=== PATIENT | male | born 1990 | race Caucasian/White ===

== ENCOUNTER 2023-01-26 16:58 | Emergency (ER) | payer OTHER, MEDICAID, SELFPAY ==
[2023-01-26 17:04] VITALS: BP 136/88; PULSE 89; RESP 18; TEMP 37.1; O2SAT 97; BMI 29.1
--- NOTE | 2023-01-26 17:14 | PC.NURSE ---
IV PLACED PER David RICHARDSON RN
--- NOTE | 2023-01-26 17:22 | ED_ITS ---
Documented by User: GEORGE Sprague 01/26/23 18:17 HPI - General Adult General Chief complaint: Skin/Abscess/Foreign Body Stated complaint: LUMPS Time Seen by Provider: 01/26/23 17:10 Source: patient Mode of arrival: walk-in Limitations: other Limitations comment: PT HAS CEREBRAL PALSY History of Present Illness HPI narrative: patient is a 32-year-old male with cerebral palsy who presents to the emergency department for a one-week history of red swollen tender areas to the bilateral forearms. He has a history of similar in the past. He has had no fevers or vomiting. No medications taken prior to arrival. He states he has had drainage from the areas. There is no active drainage at time of presentation to the Emergency Room. Related Data Previous Rx's Medication Instructions Recorded clindamycin HCl 150 mg capsule 300 mg PO Q6H 10 days #80 caps 01/26/23 naproxen sodium 550 mg tablet 550 mg PO BID PRN pain #10 tabs 01/26/23 ondansetron 4 mg disintegrating 4 mg PO Q6H PRN nausea and 01/26/23 tablet vomiting #12 tabs Allergies Allergy/AdvReac Type Severity Reaction Status Date / Time amoxicillin Allergy Severe Rash Verified 01/26/23 17:04 Review of Systems ROS Constitutional Denies: fever or chills Ears, nose, mouth, and throat Denies: throat pain Respiratory Denies: shortness of breath or cough Gastrointestinal Denies: nausea or vomiting Musculoskeletal Denies: back pain Integumentary/Breast Reports: rash, redness, skin tenderness and skin swelling Neurological Denies: headache Hematologic/Lymphatic Denies: easy bruising Allergic/Immunologic Denies: hives [facility] Medical History (Updated 01/26/23 @ 18:15 by GEORGE Sprague) Social History Smoking status: Never smoker Exam Narrative Exam Narrative: Gen.: Awake, alert, in no distress Head: Normocephalic, atraumatic ENT: Moist mucous membranes Respiratory: No respiratory distress Extremities: spastic movement of the upper extremities with multiple erythematous indurated area has of the right ulnar forearm, multiple scabs n oted, no fluctuance, red streaking or circumferential erythema. Left forearm with healing abscess near the left elbow, no redness or drainage. Swollen, indurated abscess to the left mid forearm with scab, no active drainage Psych: Normal mood and affect Neuro: No focal neuro deficit, spastic movement and dysarthria from cerebral palsy Skin: Warm, dry Constitutional Vital Signs, click to edit/add: Last Vital Signs Temp 98.6 F 01/26/23 18:30 Pulse 92 H 01/26/23 18:30 Resp 16 01/26/23 18:30 BP 124/82 H 01/26/23 18:30 Pulse Ox 96 01/26/23 18:30 O2 Del Method Room Air 01/26/23 18:30 Course Vital Signs Vital signs: Vital Signs Temperature 98.7 F 01/26/23 17:04 Pulse Rate 89 01/26/23 17:04 Respiratory Rate 18 01/26/23 17:04 Blood Pressure 136/88 H 01/26/23 17:04 Pulse Oximetry 97 01/26/23 17:04 Oxygen Delivery Method Room Air 01/26/23 17:04 Temperature 98.6 F 01/26/23 18:30 Pulse Rate 92 H 01/26/23 18:30 Respiratory Rate 16 01/26/23 18:30 Blood Pressure 124/82 H 01/26/23 18:30 Pulse Oximetry 96 01/26/23 18:30 Oxygen Delivery Method Room Air 01/26/23 18:30 Medical Decision Making MDM Narrative Medical decision making narrative: patient treated with IV clindamycin, lab studies are within normal limits, no evidence of sepsis and the patient will be discharged home on clindamycin, NSAIDs and Zofran as needed. No open wounds to culture with drainage at this time. No significant fluctuant areas requiring incision and drainage. Warm compresses encouraged. Follow-up with PCP and return to the emergency department if symptoms change or worsen Medical Records Medical records reviewed: Yes I reviewed the patient's medical records Lab Data Lab results reviewed: Yes I reviewed the patient's lab results Labs: Lab Results 01/26/23 01/26/23 Range/Units 17:14 17:30 WBC 9.0 (4.0-11.0) 10^3/uL RBC 4.60 L (4.70-6.10) 10^6/uL Hgb 13.4 L (14.0-18.0) g/dL Hct 39.0 L (42.0-54.0) % MCV 84.8 (80.0-94.0) fL MCH 29.1 (25.9-34.0) pg MCHC 34.4 (29.9-35.2) g/dL RDW 13.1 (11.0-15.0) % Plt Count 245 (150-450) 10^3/uL MPV 10.9 (9.5-13.5) fL Neut % (Auto) 60.7 (43.0-75.0) % Lymph % (Auto) 31.9 (20.5-60.0) % [place] % (Auto) 6.6 (1.7-12.0) % Eos % (Auto) 0.4 L (0.9-7.0) % Baso % (Auto) 0.2 (0.2-2.0) % Neut # (Auto) 5.5 (1.4-6.5) 10^3/uL Lymph # (Auto) 2.9 (1.2-3.8) 10^3/uL [place] # (Auto) 0.6 (0.3-0.8) 10^3/uL Eos # (Auto) 0.0 (0.0-0.7) 10^3/uL Baso # (Auto) 0.0 (0.0-0.1) 10^3/uL Abs Immat Gran (auto) 0.02 (0.00-0.03) 10^3/uL Imm/Tot Granulo (auto) 0.2 (0.0-0.5) % Sodium 141 (136-145) mmol/L Potassium 4.4 (3.5-5.1) mmol/L Chloride 104 (98-107) mmol/L Carbon Dioxide 26.3 (21.0-32.0) mmol/L Anion Gap 15.1 BUN 9.0 (7.0-18.0) mg/dL Creatinine 1.06 (0.70-1.30) mg/dL Est GFR ( Amer) >60 (>=60) Est GFR (Non-Af Amer) >60 (>=60) BUN/Creatinine Ratio 8.5 Glucose 87 (74-106) mg/dL Lactate 1.6 (0.4-2.0) mmol/L Calcium 8.2 L (8.5-10.1) mg/dL Total Bilirubin 0.4 (0.2-1.0) mg/dL AST 20 (15-37) U/L ALT 25 (16-63) U/L Alkaline Phosphatase 79 (46-116) U/L Total Protein 7.6 (6.4-8.2) g/dL Albumin 3.7 (3.4-5.0) g/dL Globulin 3.9 g/dL Albumin/Globulin Ratio 0.9 Discharge Plan Discharge Chief Complaint: Skin/Abscess/Foreign Body Clinical Impression: Abscess of skin or subcutaneous tissue, Cellulitis Patient Disposition: Home, Self-Care Time of Disposition Decision: 18:13 Condition: Good Prescriptions / Home Meds: New clindamycin HCl 150 mg capsule 300 mg PO Q6H 10 Days Qty: 80 0RF ondansetron 4 mg tablet,disintegrating 4 mg PO Q6H PRN (Reason: nausea and vomiting) Qty: 12 0RF naproxen sodium 550 mg tablet 550 mg PO BID PRN (Reason: pain) Qty: 10 0RF Instructions: Cellulitis (ED), Warm Compress or Soak (ED) Stand Alone Forms: Portal Instructions Referrals: Farhad Palacios MD [Primary Care Provider] - 1 week Discharge Date/Time: 01/26/23 18:35 Documented by User: Tulio Grubbs MD 01/26/23 20:27 HPI - General Adult General Chief complaint: Skin/Abscess/Foreign Body Stated complaint: LUMPS Time Seen by Provider: 01/26/23 17:10 Related Data Previous Rx's Medication Instructions Recorded clindamycin HCl 150 mg capsule 300 mg PO Q6H 10 days #80 caps 01/26/23 naproxen sodium 550 mg tablet 550 mg PO BID PRN pain #10 tabs 01/26/23 ondansetron 4 mg disintegrating 4 mg PO Q6H PRN nausea and 01/26/23 tablet vomiting #12 tabs Allergies Allergy/AdvReac Type Severity Reaction Status Date / Time amoxicillin Allergy Severe Rash Verified 01/26/23 17:04 [facility] Medical History (Updated 01/26/23 @ 18:15 by GEORGE Sprague) Social History Smoking status: Never smoker Exam Constitutional Vital Signs, click to edit/add: Last Vital Signs Temp 98.6 F 01/26/23 18:30 Pulse 92 H 01/26/23 18:30 Resp 16 01/26/23 18:30 BP 124/82 H 01/26/23 18:30 Pulse Ox 96 01/26/23 18:30 O2 Del Method Room Air 01/26/23 18:30 Course Vital Signs Vital signs: Vital Signs Temperature 98.7 F 01/26/23 17:04 Pulse Rate 89 01/26/23 17:04 Respiratory Rate 18 01/26/23 17:04 Blood Pressure 136/88 H 01/26/23 17:04 Pulse Oximetry 97 01/26/23 17:04 Oxygen Delivery Method Room Air 01/26/23 17:04 Temperature 98.6 F 01/26/23 18:30 Pulse Rate 92 H 01/26/23 18:30 Respiratory Rate 16 01/26/23 18:30 Blood Pressure 124/82 H 01/26/23 18:30 Pulse Oximetry 96 01/26/23 18:30 Oxygen Delivery Method Room Air 01/26/23 18:30 Medical Decision Making MDM Narrative Medical decision making narrative: patient treated with IV clindamycin, lab studies are within normal limits, no evidence of sepsis and the patient will be discharged home on clindamycin, NSAIDs and Zofran as needed. No open wounds to culture with drainage at this time. No significant fluctuant areas requiring incision and drainage. Warm compresses encouraged. Follow-up with PCP and return to the emergency department if symptoms change or worsen I, Dr Grubbs, have reviewed the above progress note and course of action in the ER; agree with the above. Lab Data Labs: Lab Results 01/26/23 01/26/23 Range/Units 17:14 17:30 WBC 9.0 (4.0-11.0) 10^3/uL RBC 4.60 L (4.70-6.10) 10^6/uL Hgb 13.4 L (14.0-18.0) g/dL Hct 39.0 L (42.0-54.0) % MCV 84.8 (80.0-94.0) fL MCH 29.1 (25.9-34.0) pg MCHC 34.4 (29.9-35.2) g/dL RDW 13.1 (11.0-15.0) % Plt Count 245 (150-450) 10^3/uL MPV 10.9 (9.5-13.5) fL Neut % (Auto) 60.7 (43.0-75.0) % Lymph % (Auto) 31.9 (20.5-60.0) % [place] % (Auto) 6.6 (1.7-12.0) % Eos % (Auto) 0.4 L (0.9-7.0) % Baso % (Auto) 0.2 (0.2-2.0) % Neut # (Auto) 5.5 (1.4-6.5) 10^3/uL Lymph # (Auto) 2.9 (1.2-3.8) 10^3/uL [place] # (Auto) 0.6 (0.3-0.8) 10^3/uL Eos # (Auto) 0.0 (0.0-0.7) 10^3/uL Baso # (Auto) 0.0 (0.0-0.1) 10^3/uL Abs Immat Gran (auto) 0.02 (0.00-0.03) 10^3/uL Imm/Tot Granulo (auto) 0.2 (0.0-0.5) % Sodium 141 (136-145) mmol/L Potassium 4.4 (3.5-5.1) mmol/L Chloride 104 (98-107) mmol/L Carbon Dioxide 26.3 (21.0-32.0) mmol/L Anion Gap 15.1 BUN 9.0 (7.0-18.0) mg/dL Creatinine 1.06 (0.70-1.30) mg/dL Est GFR ( Amer) >60 (>=60) Est GFR (Non-Af Amer) >60 (>=60) BUN/Creatinine Ratio 8.5 Glucose 87 (74-106) mg/dL Lactate 1.6 (0.4-2.0) mmol/L Calcium 8.2 L (8.5-10.1) mg/dL Total Bilirubin 0.4 (0.2-1.0) mg/dL AST 20 (15-37) U/L ALT 25 (16-63) U/L Alkaline Phosphatase 79 (46-116) U/L Total Protein 7.6 (6.4-8.2) g/dL Albumin 3.7 (3.4-5.0) g/dL Globulin 3.9 g/dL Albumin/Globulin Ratio 0.9 Discharge Plan Discharge Chief Complaint: Skin/Abscess/Foreign Body Clinical Impression: Abscess of skin or subcutaneous tissue, Cellulitis Patient Disposition: Home, Self-Care Time of Disposition Decision: 18:13 Condition: Good Prescriptions / Home Meds: New clindamycin HCl 150 mg capsule 300 mg PO Q6H 10 Days Qty: 80 0RF ondansetron 4 mg tablet,disintegrating 4 mg PO Q6H PRN (Reason: nausea and vomiting) Qty: 12 0RF naproxen sodium 550 mg tablet 550 mg PO BID PRN (Reason: pain) Qty: 10 0RF Instructions: Cellulitis (ED), Warm Compress or Soak (ED) Stand Alone Forms: Portal Instructions Referrals: Farhad Palacios MD [Primary Care Provider] - 1 week Discharge Date/Time: 01/26/23 18:35
[2023-01-26] MEDS: CLINDAMYCIN PHOSPHATE/D5W 600 MG/50 ML PIGGYBACK 100 MG IV (17:33)
[2023-01-26 17:44] LABS: Basophils Percent Auto 0.2 % (0.2-2.0); Eosinophils Percent Auto 0.4 % (0.9-7.0); Hemoglobin 13.4 g/dL (14.0-18.0); Immature Granulocytes Abs Auto 0.02 10^3/uL (0.00-0.03); Immature Granulocytes Pct Auto 0.2 % (0.0-0.5); Lymphocytes Absolute Auto 2.9 10^3/uL (1.2-3.8); Lymphocytes Percent Auto 31.9 % (20.5-60.0); Mean Corpuscular HGB Conc 34.4 g/dL (29.9-35.2); Mean Corpuscular Hemoglobin 29.1 pg (25.9-34.0); Mean Corpuscular Volume 84.8 fL (80.0-94.0); Mean Platelet Volume 10.9 fL (9.5-13.5); Monocytes Absolute Auto 0.6 10^3/uL (0.3-0.8); Monocytes Percent Auto 6.6 % (1.7-12.0); Neutrophils Absolute Auto 5.5 10^3/uL (1.4-6.5); Neutrophils Percent Auto 60.7 % (43.0-75.0); Platelet Count 245 10^3/uL (150-450); Red Cell Distribution Width 13.1 % (11.0-15.0)
[2023-01-26 17:53] LABS: Alanine Aminotransferase 25 U/L (16-63); Albumin Globulin Ratio 0.9; Albumin Level 3.7 g/dL (3.4-5.0); Alkaline Phosphatase 79 U/L (46-116); Anion Gap 15.1; Aspartate Amino Transferase 20 U/L (15-37); BUN Creatinine Ratio 8.5; Bilirubin Total 0.4 mg/dL (0.2-1.0); Calcium 8.2 mg/dL (8.5-10.1); Carbon Dioxide 26.3 mmol/L (21.0-32.0); Chloride 104 mmol/L (98-107); Estimated GFR (African America >60 (>=60); Estimated GFR (Non-African Ame >60 (>=60); Globulin 3.9 g/dL; Glucose 87 mg/dL (74-106); Potassium 4.4 mmol/L (3.5-5.1); Sodium 141 mmol/L (136-145); Total Protein 7.6 g/dL (6.4-8.2)
[2023-01-26 18:02] LABS: Lactate/Lactic Acid 1.6 mmol/L (0.4-2.0)
[2023-01-26 18:30] VITALS: BP 124/82; PULSE 92; RESP 16; TEMP 37; O2SAT 96
== END 2023-01-26 18:35 | disposition home or self-care (01) ==
PROVIDERS: Physician Assistant; Emergency Provider Emergency Medicine; PCP Family Medicine
DX: L02.414 Cutaneous abscess of left upper limb (principal); L03.119 Cellulitis of unspecified part of limb; G80.9 Cerebral palsy, unspecified; R47.1 Dysarthria and anarthria
CPT/HCPCS: 36415; 80053; 83605; 85025; 87040; 96365; 99285

== ENCOUNTER 2023-04-08 19:51 | Emergency (ER) | payer MEDICARE, MEDICAID, SELFPAY ==
[2023-04-08 19:54] VITALS: BP 139/100; PULSE 87; RESP 18; TEMP 37; O2SAT 98; BMI 27.4
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
--- NOTE | 2023-04-08 20:28 | PC.NURSE ---
Pt now stating that he would like help Pt states that the other personality is taking over more and more frequently and he believes a mental health eval would be beneficial
== END 2023-04-08 21:36 | disposition home or self-care (01) ==
PROVIDERS: Emergency Provider Internal Medicine; PCP Family Medicine
DX: S20.211A Contusion of right front wall of thorax, initial encounter (principal); W01.198A Fall on same level from slipping, tripping and stumbling with subsequent striking against other object, initial encounter; Z79.899 Other long term (current) drug therapy; G80.9 Cerebral palsy, unspecified
CPT/HCPCS: 71101; 99283

== ENCOUNTER 2024-04-19 18:34 | Emergency (ER) | payer MEDICARE, MEDICAID, SELFPAY ==
[2024-04-19 18:39] VITALS: BP 146/88; PULSE 80; TEMP 36.6; O2SAT 97; BMI 25.8
--- NOTE | 2024-04-19 18:52 | ED_ITS ---
HPI - Eye Problem General Chief complaint: Eye Problems Stated complaint: Eye Problem Time Seen by Provider: 04/19/24 18:43 Source: patient Mode of arrival: walk-in History of Present Illness HPI Narrative: Patient is a pleasant 33-year-old male with cerebral palsy who presents to the ER for upper respiratory symptoms as well as redness and irritation in the eyes. He states 1 week ago he developed flulike symptoms of cough and congestion. He denies fevers. He states he had an episode of vomiting earlier in the week. He states in the last 2 days he has developed redness and irritation with drainage of the bilateral eyes. No visual loss. He does wear glasses. No medications taken prior to arrival. Related Data Home Medications ?Medication ?Instructions ?Recorded ?Confirmed albuterol sulfate 90 mcg/actuation inhalation 04/08/23 aerosol inhaler budesonide-formoterol HFA 160 inhalation 04/08/23 mcg-4.5 mcg/actuation aerosol inhaler (Symbicort) cetirizine 10 mg tablet mg 04/08/23 omeprazole 20 mg capsule,delayed mg 04/08/23 release Previous Rx's ?Medication ?Instructions ?Recorded clindamycin HCl 150 mg capsule 300 mg (2 x 150 mg) PO Q6H 10 days 01/26/23 #80 caps naproxen sodium 550 mg tablet 550 mg PO BID PRN pain #10 tabs 01/26/23 ondansetron 4 mg disintegrating 4 mg PO Q6H PRN nausea and 01/26/23 tablet vomiting #12 tabs [id number]-DM 10 ml PO Q6H PRN cold symptoms 04/19/24 2 mg-30 mg-10 mg/5 mL oral syrup #200 mL (Bromfed DM) cefdinir 300 mg capsule 300 mg PO BID 10 days #20 caps 04/19/24 erythromycin 5 mg/gram (0.5 %) eye 1 applic ophthalmic (eye) QID #3.5 04/19/24 ointment grams Allergies Allergy/AdvReac Type Severity Reaction Status Date / Time amoxicillin Allergy Severe Rash Verified 01/26/23 17:04 Review of Systems ROS Constitutional Denies: fever or chills Ears, nose, mouth, and throat Reports: nasal congestion; Denies: throat pain Cardiovascular Denies: chest pain Respiratory Reports: cough; Denies: shortness of breath Gastrointestinal Reports: nausea and vomiting Musculoskeletal Denies: back pain Integumentary/Breast Denies: rash Neurological Denies: headache, numbness in extremities or weakness in extremities Hematologic/Lymphatic Denies: easy bruising or easy bleeding [facility] Medical History (Updated 04/19/24 @ 18:49 by GEORGE Sprague) Eczema ?L30.9 - Dermatitis, unspecified (ICD-10) Cerebral palsy ?G80.9 - Cerebral palsy, unspecified (ICD-10) Social History Smoking status: Never smoker Exam Narrative Exam Narrative: Gen.: Awake, alert, in no distress Head: Normocephalic, atraumatic ENT: Moist mucous membranes, bilateral conjunctival are injected with crusting of the eyelashes. No periorbital edema or erythema. Normal extraocular muscle motion. Right TM is erythematous. No pharyngeal erythema Respiratory: No respiratory distress, lungs clear bilaterally Cardio: Regular rate and rhythm Extremities: Moves extremities equally Psych: Normal mood and affect Neuro: No focal neuro deficit Skin: Warm, dry, intact Constitutional Vital Signs, click to edit/add: Last Vital Signs Temp 97.9 F 04/19/24 18:39 Pulse 80 04/19/24 18:39 Resp 18 04/19/24 18:39 BP 146/88 H 04/19/24 18:39 Pulse Ox 97 04/19/24 18:39 O2 Del Method Room Air 04/19/24 18:39 Course Vital Signs Vital signs: Vital Signs Temperature 97.9 F 04/19/24 18:39 Pulse Rate 80 04/19/24 18:39 Respiratory Rate 18 04/19/24 18:39 Blood Pressure 146/88 H 04/19/24 18:39 Pulse Oximetry 97 04/19/24 18:39 Oxygen Delivery Method Room Air 04/19/24 18:39 Temperature 97.9 F 04/19/24 18:39 Pulse Rate 80 04/19/24 18:39 Respiratory Rate 18 04/19/24 18:39 Blood Pressure 146/88 H 04/19/24 18:39 Pulse Oximetry 97 04/19/24 18:39 Oxygen Delivery Method Room Air 04/19/24 18:39 MDM - Eye Problem MDM Narrative Medical decision making narrative: Exam is consistent with upper respiratory infection and right otitis media as well as bilateral conjunctivitis. Patient placed on antibiotics, antibiotic eyedrops and erythromycin eye ointment for nighttime. Follow-up with PCP and return to the ER if symptoms change or worsen. He is well appearing, nontoxic at discharge. SUPERVISED APC VISIT, PHYSICIAN ATTESTATION: Based on the medical record the care appears appropriate. ? Medical Records Attestation: I reviewed the patient's medical records. Discharge Plan Discharge Chief Complaint: Eye Problems Clinical Impression: Upper respiratory infection, Bilateral conjunctivitis Patient Disposition: Home, Self-Care Time of Disposition Decision: 18:49 Condition: Good Prescriptions / Home Meds: New erythromycin 5 mg/gram (0.5 %) ointment 1 applic ophthalmic (eye) QID Qty: 3.5 0RF cyywzuyfeigkplx-ldgstdhum-UK [Bromfed DM] 2-30-10 mg/5 mL syrup 10 ml PO Q6H PRN (Reason: cold symptoms) Qty: 200 0RF cefdinir 300 mg capsule 300 mg PO BID 10 Days Qty: 20 0RF No Action clindamycin HCl 150 mg capsule 300 mg PO Q6H 10 Days Qty: 80 0RF ondansetron 4 mg tablet,disintegrating 4 mg PO Q6H PRN (Reason: nausea and vomiting) Qty: 12 0RF naproxen sodium 550 mg tablet 550 mg PO BID PRN (Reason: pain) Qty: 10 0RF cetirizine 10 mg tablet omeprazole 20 mg capsule,delayed release(DR/EC) albuterol sulfate 90 mcg/actuation HFA aerosol inhaler INHALATION budesonide-formoterol [Symbicort] 160-4.5 mcg/actuation HFA aerosol inhaler INHALATION Print Language: Nepali Instructions: Upper Respiratory Infection (ED), Conjunctivitis (ED) Additional Instructions: Please use drops in both eyes, 3-4 times a day for 5 days with ointment on the eyelashes at night time. Referrals: Farhad Palacios MD [Primary Care Provider] - 1 week
[2024-04-19] MEDS: TOBRAMYCIN 0.3% OP SOL 100 DROP/5 ML BOTTLE OP (18:55)
[2024-04-19] MEDS: ERYTHROMYCIN OP OINT 0.5% 1 GM TUBE EYE-BOTH (18:55)
== END 2024-04-19 19:01 | disposition home or self-care (01) ==
PROVIDERS: Emergency Provider Emergency Medicine; PCP Family Medicine
DX: H10.9 Unspecified conjunctivitis (principal); J06.9 Acute upper respiratory infection, unspecified; G80.9 Cerebral palsy, unspecified
CPT/HCPCS: 99283